=== PATIENT | female | born 1995 ===

== ENCOUNTER 2017-04-30 10:30 | Emergency (ER) | payer MEDICAID ==
[2017-04-30 11:08] VITALS: BMI 22.1
--- NOTE | 2017-04-30 11:55 | C.PDOC ---
History Of Present Illness 21 year old patient, with no significant past medical history, presents to the ED complaining of constant suprapubic and epigastric pain since this morning. Patient states the pain is worse with eating. She notes she took a test which was positive a few days ago. She reports she normally has irregular periods and her last period was in December 2016. She took several tests since December, but they have been negative until recently. Patient also complains of intermittent nausea, and notes she vomited yesterday. Patient denies any vaginal bleeding, fever, chills, or any other complaints at this time. Time Seen by Provider: 04/30/17 11:45 Chief Complaint (Nursing): Abdominal Pain History Per: Patient History/Exam Limitations: no limitations Onset/Duration Of Symptoms: Hrs (this morning) Current Symptoms Are (Timing): Still Present Context: Other Severity: Mild Pain Scale Rating Of: 3 Location Of Pain/Discomfort: Epigastric, Suprapubic Radiation Of Pain To:: None Quality Of Discomfort: "Pain" Associated Symptoms: Nausea Exacerbating Factors: Food Alleviating Factors: None Last Bowel Movement: Today Recent travel outside of the [place]: No Abnormal Vaginal Bleeding: No Last Menstral Period: December 2016 Past Medical History Reviewed: Historical Data, Nursing Documentation, Vital Signs Vital Signs: Last Vital Signs Temp 98.0 F 04/30/17 14:01 Pulse 68 04/30/17 14:01 Resp 19 04/30/17 14:01 BP 125/76 04/30/17 14:01 Pulse Ox 99 04/30/17 14:01 Family History: States: Unknown Family Hx - Social History Hx Alcohol Use: No Hx Substance Use: No - Immunization History Hx Tetanus Toxoid Vaccination: No Hx Influenza Vaccination: No Hx Pneumococcal Vaccination: No Review Of Systems Except As Marked, All Systems Reviewed And Found Negative. Constitutional: Negative for: Fever, Chills Gastrointestinal: Positive for: Nausea, Abdominal Pain (epigastric and suprapubic). Negative for: Vomiting Genitourinary: Negative for: Vaginal Bleeding Physical Exam - Physical Exam Appears: Non-toxic, No Acute Distress Skin: Warm, Dry Head: Atraumatic, Normacephalic Oral Mucosa: Moist Neck: Normal ROM, Supple Chest: Symmetrical Cardiovascular: Rhythm Regular Respiratory: Normal Breath Sounds, No Rales, No Rhonchi, No Wheezing Gastrointestinal/Abdominal: Soft, Tenderness (epigastric; mild suprapubic), No Guarding, No Rebound Back: Normal Inspection, No CVA Tenderness Extremity: Normal ROM Neurological/Psych: Oriented x3, Normal Speech, Normal Cognition Gait: Steady ED Course And Treatment O2 Sat by Pulse Oximetry: 100 (room air) Pulse Ox Interpretation: Normal Medical Decision Making Medical Decision Making: Plan: * Maalox * Labs * First trimester US Progress: First trimester Ultrasound: read by radiologist (Merlyn Durham MD) Indication: Abdominal pain, rule out ectopic Technique: A real-time transabdominal pelvic ultrasound was performed. Comparison: None available Findings: The uterus measures approximately 11.6 x 6.2 x 6.9 cm. Anteverted. Cervix length measures approximately 3.6 cm. Intrauterine gestational sac measures approximately 3.6 cm compatible with gestational age 8 weeks 6 days. 3 mm yolk sac. Soldier-rump length measures approximately 1.3 cm compatible with gestational age 7 weeks 4 days. heart motion measures approximately 148.2 beats per minute. The right ovary measures 3.6 x 2.4 x 3.5 cm and appears unremarkable. The left ovary measures 3.3 x 1.8 x 2.9 cm and appears unremarkable. Blood flow is noted to both ovaries. No significant pelvic free fluid identified. Impression: Live single intrauterine compatible with gestational age 8 weeks 6 days by gestational sac calculation and 7 weeks 4 days by crown-rump length calculation. heart motion measures approximately 148.2 beats per minute. Advise an anomaly screen at 16-18 weeks gestational age. Disposition - Disposition Disposition: HOME/ ROUTINE Disposition Time: 14:18 Condition: STABLE - Clinical Impression Clinical Impression: Abdominal pain, - Scribe Statement The provider has reviewed the documentation as recorded by the Scribe Sharona Mejia Provider Attestation: All medical record entries made by the Scribe were at my direction and personally dictated by me. I have reviewed the chart and agree that the record accurately reflects my personal performance of the history, physical exam, medical decision making, and the department course for this patient. I have also personally directed, reviewed, and agree with the discharge instructions and disposition.
[2017-04-30] MEDS ORDERED: Aluminum Hydroxide/Magnesium Hydroxide Susp (30 mL) PO STA (11:56)
[2017-04-30 12:00] LABS: RBC URINE 9 /hpf (0-3); URINE BACTERIA RARE (<OCC); URINE BILIRUBIN NEGATIVE (NEGATIVE); URINE BLOOD NEGATIVE (NEGATIVE); URINE COLOR Yellow (YELLOW); URINE GLUCOSE (UA) NORMAL (Normal); URINE KETONE NEGATIVE (NEGATIVE); URINE LEUKOCYTE ESTERASE TRACE Leu/uL (Negative); URINE PROTEIN NEGATIVE (NEGATIVE); URINE UROBILINOGEN NORMAL mg/dL (0.2-1.0); WBC URINE 2 /hpf (0-5)
[2017-04-30] MEDS ORDERED: Aluminum Hydroxide/Magnesium Hydroxide Susp (30 mL) ONE (12:31)
[2017-04-30 14:02] VITALS: BP 125/76; PULSE 68; RESP 19; TEMP 98
--- NOTE | 2017-04-30 14:09 | US ---
Indication: Abdominal pain, rule out ectopic Technique: A real-time transabdominal pelvic ultrasound was performed. Comparison: None available Findings: The uterus measures approximately 11.6 x 6.2 x 6.9 cm. Anteverted. Cervix length measures approximately 3.6 cm. Intrauterine gestational sac measures approximately 3.6 cm compatible with gestational age 8 weeks 6 days. 3 mm yolk sac. Haliimaile-rump length measures approximately 1.3 cm compatible with gestational age 7 weeks 4 days. heart motion measures approximately 148.2 beats per minute. The right ovary measures 3.6 x 2.4 x 3.5 cm and appears unremarkable. The left ovary measures 3.3 x 1.8 x 2.9 cm and appears unremarkable. Blood flow is noted to both ovaries. No significant pelvic free fluid identified. Impression: Live single intrauterine compatible with gestational age 8 weeks 6 days by gestational sac calculation and 7 weeks 4 days by crown-rump length calculation. heart motion measures approximately 148.2 beats per minute. Advise an anomaly screen at 16-18 weeks gestational age.
[2017-04-30 14:19] VITALS: O2SAT 100
== END 2017-04-30 14:32 | disposition home or self-care (01) ==
LOC: C.ER 10:30
DX: O26.891 Other specified pregnancy related conditions, first trimester (principal); R10.13 Epigastric pain; Z3A.08 8 weeks gestation of pregnancy

== ENCOUNTER 2017-07-01 12:52 | Emergency (ER) | payer MEDICAID ==
[2017-07-01 12:52] VITALS: BMI 22.1
[2017-07-01 13:53] LABS: RBC URINE 4 /hpf (0-3); URINE BILIRUBIN NEGATIVE (NEGATIVE); URINE BLOOD NEGATIVE (NEGATIVE); URINE COLOR Yellow (YELLOW); URINE GLUCOSE (UA) NORMAL (Normal); URINE KETONE TRACE mg/dL (NEGATIVE); URINE LEUKOCYTE ESTERASE TRACE Leu/uL (Negative); URINE PROTEIN 1+ mg/dL (NEGATIVE); URINE UROBILINOGEN NORMAL mg/dL (0.2-1.0); WBC URINE 6 /hpf (0-5)
--- NOTE | 2017-07-01 14:49 | C.PDOC ---
History Of Present Illness 21 y/o female w/o significant PMHx presents to the emergency department for evaluation of gradual onset of diffuse lower abdominal cramping pain associated with one episode of vomiting and intermittent dizziness since this morning. Pt is 17 weeks , LMP was in . Pt admits, (+) care, no complication as of today. Pt denies fever, chills, recent illness, headache, visual changes, focal deficits, CP, SOB, dyspnea, palpitation, wheezing, hematemesis, back pain, UTi sx, hematuria, vaginal discharge or bleeding, denies B/L calf pain. Ambulate to Ed for evaluation, not in any apparent distress. Time Seen by Provider: 07/01/17 14:25 Chief Complaint (Nursing): Abdominal Pain History Per: Patient History/Exam Limitations: no limitations Onset/Duration Of Symptoms: Hrs Current Symptoms Are (Timing): Still Present Severity: Mild Location Of Pain/Discomfort: RLQ, LLQ Radiation Of Pain To:: None Quality Of Discomfort: "Pain" Associated Symptoms: Vomiting. denies: Fever, Chills, Urinary Symptoms Exacerbating Factors: None Alleviating Factors: None Recent travel outside of the [place]: No Abnormal Vaginal Bleeding: No Past Medical History Reviewed: Historical Data, Nursing Documentation, Vital Signs Vital Signs: Last Vital Signs Temp 98.2 F 07/01/17 18:03 Pulse 74 07/01/17 18:03 Resp 16 07/01/17 18:03 BP 114/66 07/01/17 18:03 Pulse Ox 98 07/01/17 18:03 Family History: States: Unknown Family Hx - Social History Hx Alcohol Use: No Hx Substance Use: No - Immunization History Hx Tetanus Toxoid Vaccination: No Hx Influenza Vaccination: No Hx Pneumococcal Vaccination: No Review Of Systems Except As Marked, All Systems Reviewed And Found Negative. Constitutional: Negative for: Fever, Chills Cardiovascular: Negative for: Chest Pain Respiratory: Negative for: Shortness of Breath Gastrointestinal: Positive for: Vomiting, Abdominal Pain. Negative for: Diarrhea Genitourinary: Negative for: Dysuria, Hematuria, Vaginal Bleeding Neurological: Positive for: Dizziness. Negative for: Headache Physical Exam - Physical Exam Appears: Non-toxic, No Acute Distress Skin: Warm, Dry, No Rash Head: Normacephalic Eye(s): bilateral: PERRL Nose: No Flaring, No Discharge Oral Mucosa: Moist Throat: No Erythema, No Drooling Neck: Supple Chest: Symmetrical Cardiovascular: Rhythm Regular, No Murmur Respiratory: No Decreased Breath Sounds, No Accessory Muscle Use, No Rales, No Rhonchi, No Stridor, No Wheezing Gastrointestinal/Abdominal: Soft, Tenderness (/inquinal tenderness, mild), No Distention, No Guarding, No Rebound Back: No CVA Tenderness Extremity: Normal ROM, No Tenderness, No Pedal Edema, No Deformity Extremity: Bilateral: Atraumatic Neurological/Psych: Oriented x3, Normal Speech, Normal Cognition ED Course And Treatment - Laboratory Results Result Diagrams: 07/01/17 15:00 07/01/17 15:00 Lab Interpretation: Normal O2 Sat by Pulse Oximetry: 100 (room air) Pulse Ox Interpretation: Normal - CT Scan/US US Other Rad Studies (CT/US): Radiology Report Reviewed CT/US Interpretation: Accession No. : [id number]. Patient Name / ID : BALOD MCQUEEN / [id number]. Exam Date : 07/01/2017 15:50:46 ( Approved ). Study Comment : Sex / Age : F / 21Y. Creator : Merlyn Samaniego MD. Dictator : Child Care Development Specialist : Assistant Teaching Professor : Merlyn Samaniego MD. Approver2 : Report Date : 07/01/2017 16:50:58. My Comment : . Indication: Abdominal pain. Comparison: 1st trimester ultrasound performed 04/30. Technique: Real-time ultrasound was performed through the pelvis. Findings: There is a single living fetus in cephalic presentation. Posterior placenta. The placenta is not previa. The study was performed for the emergent evaluation of abdominal pain, and the whole anatomic survey of the fetus was not performed. This should be performed on an outpatient elective basis as clinically warranted. There are no adnexal masses or cysts evident. Cervix length measures approximately 3.5 cm. Measurements and calculations: Fetus has a composite sonographic age of 17 weeks 2 days. This calculation is based on the biparietal diameter, head circumference, abdominal circumference, and femur length. Estimated heart rate 154.4 beats per min. Impression: Single living fetus with a composite sonographic age of 17 weeks 2 days. Estimated heart rate 154.4 beats per min. Abd US Other Rad Studies (CT/US): Radiology Report Reviewed CT/US Interpretation: Accession No. : [id number]. Patient Name / ID : BALDO MCQUEEN / [id number]. Exam Date : 07/01/2017 16:13:26 ( Approved ). Study Comment : Sex / Age : F / 21Y. Creator : Merlyn Samaniego MD. Dictator : Child Care Development Specialist : Assistant Teaching Professor : Merlyn Samaniego MD. Approver2 : Report Date : 07/01/2017 16:52:03. My Comment : . Indication: RLQ pain r/o appendicitis. Limited abdominal ultrasound. Findings : Limited submitted views obtained in the region of interest (right lower quadrant) appear grossly unremarkable. The appendix was not identified. No significant free fluid is seen. Findings: The appendix is not identified. Please note that appendicitis cannot be excluded on the basis of this study alone. Progress Note: On re-eavluation, pt is afebrile, hemodynamicaly stable. Non- toxic. Tolerate po well in ED. ENT: no acute findings. Lungs: CTA B/L, BS equal B/L. Abd: benign, (-) guarding, (-) rebound. back: (-) CVA tenderness. Neuorlogicaly intact. B/L legs: (-) calf tenderness B/L, no edema. Diagnostics review and appears normal. beta quat c/w 16 wks GA. Blood type A positice Ab (-). US results review, zoe IUP 17w2D, no acute abnormalitis. results review, discussed with pt. Results review and discussed with pt. Pt was advise on sign of appendicitis-OBS and return to ED at any time if any worsening or new changes. ref. to F/u with OB in 1-2 days for re-evaluation. return to ED if any worsening or new changes. Pt understand, stable for discharge now. Disposition Counseled Patient/Family Regarding: Studies Performed, Diagnosis, Need For Followup, Rx Given - Disposition [facility] Disposition: HOME/ ROUTINE Disposition Time: 17:01 Condition: STABLE Additional Instructions: Encourage fluids Cranberry supplement Take medication as prescribed Follow up with OB in 1-2 days for re-evaluation. Return to ED if any worsening or new changes. Prescriptions: Nitrofurantoin Macrocrystals [Macrobid] 1 cap PO BID #14 cap Instructions: Urinary Tract Infection in (ED) Forms: [employer] (Romansh) Print Language: ANDORRAN - Clinical Impression Clinical Impression: UTI (urinary tract infection), - PA / PIE BAKER / Resident Statement MD/DO has reviewed & agrees with the documentation as recorded. - Scribe Statement The provider has reviewed the documentation as recorded by the Maureen Menezes All medical record entries made by the Maureen were at my direction and personally dictated by me. I have reviewed the chart and agree that the record accurately reflects my personal performance of the history, physical exam, medical decision making, and the department course for this patient. I have also personally directed, reviewed, and agree with the discharge instructions and disposition.
[2017-07-01 15:05] LABS: BASO % 0.5 % (0.0-2.0); EOS % 0.5 % (0.0-4.0); HEMATOCRIT 35.6 % (34.0-47.0); LYMPH # 1.5 K/uL (1.0-4.3); LYMPH % 15.5 % (20.0-40.0); MEAN CELL VOLUME 83.9 fL (81.0-99.0); MEAN CORPUSCULAR HEMOGLOBIN 27.4 pg (27.0-31.0); MEAN CORPUSCULAR HGB CONC 32.7 g/dL (33.0-37.0); MEAN PLATELET VOLUME 8.8 fL (7.2-11.7); MONO # 0.7 K/uL (0.0-0.8); MONO % 7.5 % (0.0-10.0); RED CELL DISTRIBUTION WIDTH 14.2 % (11.5-14.5); WHITE BLOOD COUNT 9.6 K/uL (4.8-10.8)
[2017-07-01 15:14] LABS: CHLORIDE 101 mmol/L (98-107); POTASSIUM 3.5 mmol/L (3.6-5.2); SODIUM 136 mmol/L (132-148)
[2017-07-01 15:17] LABS: BLOOD UREA NITROGEN 6 mg/dL (7-17); CARBON DIOXIDE 23 mmol/L (22-30); GFR AFRICAN-AMERICAN > 60
[2017-07-01 15:18] LABS: GLUCOSE,RANDOM 69 mg/dL (65-105)
--- NOTE | 2017-07-01 16:52 | US ---
Indication: Abdominal pain Comparison: 1st trimester ultrasound performed 04/30/17 Technique: Real-time ultrasound was performed through the pelvis. Findings: There is a single living fetus in cephalic presentation. Posterior placenta. The placenta is not previa. The study was performed for the emergent evaluation of abdominal pain, and the whole anatomic survey of the fetus was not performed. This should be performed on an outpatient elective basis as clinically warranted. There are no adnexal masses or cysts evident. Cervix length measures approximately 3.5 cm. Measurements and calculations: Fetus has a composite sonographic age of 17 weeks 2 days. This calculation is based on the biparietal diameter, head circumference, abdominal circumference, and femur length. Estimated heart rate 154.4 beats per min. Impression: Single living fetus with a composite sonographic age of 17 weeks 2 days. Estimated heart rate 154.4 beats per min.
--- NOTE | 2017-07-01 16:53 | US ---
Indication: RLQ pain r/o appendicitis Limited abdominal ultrasound Findings: Limited submitted views obtained in the region of interest (right lower quadrant) appear grossly unremarkable. The appendix was not identified. No significant free fluid is seen. Findings: The appendix is not identified. Please note that appendicitis cannot be excluded on the basis of this study alone.
[2017-07-01 18:04] VITALS: BP 114/66; PULSE 74; RESP 16; TEMP 98.2
[2017-07-02 16:54] VITALS: O2SAT 100
== END 2017-07-01 18:00 | disposition home or self-care (01) ==
LOC: C.ER 12:52
DX: O23.41 Unspecified infection of urinary tract in pregnancy, first trimester (principal); Z3A.17 17 weeks gestation of pregnancy

== ENCOUNTER 2017-12-04 12:07 | Inpatient (IN) | payer MEDICAID ==
[2017-12-04 12:36] VITALS: BMI 24.1
[2017-12-04] MEDS ORDERED: Penicillin G 5 Million Unit Vial IVPB ONE (12:36)
[2017-12-04] MEDS ORDERED: Lactated Ringer's 1,000 ML IV SCH ×2 (12:45)
--- NOTE | 2017-12-04 12:52 | OBHP ---
Datetime: 12/04/2017 12:41 IP Adm Impression: Term, intrauterine ; Active labor; Intact Membranes IP Admit Plan: Admit to unit; Initiate labor protocol Admit Comment, IP Provider: 22 y.o. , LMP unsure, JR 12/13/17, EGA 38w 6d by sono 04/30/17 at 7w 4d, c/o Ctx onset 0900 hours, pain scale 10/10. (+) AFM; denies LOF, VB. care: [facility]-; reports noted for anemia P Ob: 06/25/2010, , fmale 6 1/2 lbs; Everardo Moise; no complications P [employer]: 11 x monthly x 7. Denies prior STIs or abnormal Pap PMH: denies PSH: denies NKDA Meds: PNV, iron - each, QD Soc Hx: denies tobacco illicit drug or EtOH use. With FOB x 2 yrs; lives with him and daughter. Un employed Fam Hx: Mother alive 50y.o. Father alive 60 y.o. - both, no med issues. No known fam h/o cancer P.E.: as above. WD in pain with contractions. Awake, alert, oriented to time, person and place. C ooperative. FOB present Assessment: 22 y.o. P1, 38w 6d, near end of Stage 1 of labor. GBS (+). Category 1 tracing. Clin ically stable. Plan: 1) Admit 2) NPO 3) IVFs 4) Continuous EFM 5) Penicillin 6) Anticipate vaginal delivery Pelvic Type - PN: Adequate Extremities - PN: Normal Abdomen - PN: Normal Back - PN: Normal Breast - PN: Not Done Lungs - PN: Normal Heart - PN: Normal Thyroid - PN: Not Done Neurologic - PN: Normal HEENT - PN: Normal General - PN: Normal Weight - Estimated: 3178 Presentation-Admit: Vertex FHR - Baseline A Provider: 140 Membranes, Provider: Intact Contraction Comments Provider: 2-3 Comments, ACOG Physical Exam: Abdomen: Gravid. Firm with contractions. Fundal height 38cm All other systems reviewed and are negative Gestation - Est Wks by US: 38w 6d IP Hx Assessment: The History has been Reviewed and is Current EGA AdmitDate IP: 38.5 Vital Signs Provider: Reviewed; Within Normal Limits IP Indication for Induction: Not Applicable IP Chief Complaint: Uterine contractions NICHD Variability Prov Fetus A: Moderate 6-25bpm NICHD Accel Fetus A IP Provider: [id number] FHR Category Provider Fetus A: Category I NICHD Decel Fetus A IP Provider: None Dilatation, Provider: 8 Effacement, Provider: 90 Station, Provider: -3 Genitourinary Exam: Normal DTRs - PN: Not Done
[2017-12-04 12:58] LABS: BASO # 0.1 K/uL (0.0-0.2); BASO % 0.7 % (0.0-2.0); EOS % 0.3 % (0.0-4.0); HEMOGLOBIN 11.2 g/dL (11.0-16.0); LYMPH # 2.6 K/uL (1.0-4.3); MEAN CORPUSCULAR HEMOGLOBIN 24.7 pg (27.0-31.0); MEAN CORPUSCULAR HGB CONC 31.3 g/dL (33.0-37.0); MONO # 0.9 K/uL (0.0-0.8); MONO % 8.1 % (0.0-10.0); NEUT # 7.8 K/uL (1.8-7.0); NEUT % 67.9 % (50.0-75.0); NRBC % 0.1 % (0.0-2.0); RBC 4.51 Mil/uL (3.80-5.20); RED CELL DISTRIBUTION WIDTH 16.2 % (11.5-14.5); WHITE BLOOD COUNT 11.5 K/uL (4.8-10.8)
[2017-12-04 13:01] LABS: MEAN CELL VOLUME 79.1 fL (81.0-99.0)
[2017-12-04 13:12] LABS: ALBUMIN 4.1 g/dL (3.5-5.0); ALT/SGPT 23 U/L (9-52); AST/SGOT 29 U/L (14-36); BLOOD UREA NITROGEN 9 mg/dL (7-17); GFR AFRICAN-AMERICAN > 60; GFR NON-AFRICAN AMERICAN > 60
[2017-12-04] MEDS ORDERED: Oxytocin 10 Units/ml Inj ONE (13:52)
[2017-12-04] MEDS ORDERED: Lidocaine 2% Inj (20ml) ONE (13:53)
[2017-12-04] MEDS ORDERED: Oxycodone/Acetaminophen 5/325 mg Tab PO PRN (15:03)
[2017-12-04 16:56] LABS: SQUAMOUS EPITHIAL 1 /hpf (0-5); URINE BILIRUBIN NEGATIVE (NEGATIVE); URINE BLOOD 1+ (NEGATIVE); URINE CLARITY Hazy (Clear); URINE COLOR Yellow (YELLOW); URINE GLUCOSE (UA) NORMAL (Normal); URINE LEUKOCYTE ESTERASE NEG Leu/uL (Negative); URINE NITRATE NEGATIVE (NEGATIVE); URINE PROTEIN NEGATIVE (NEGATIVE); URINE UROBILINOGEN NORMAL mg/dL (0.2-1.0)
[2017-12-04] MEDS ORDERED: WATER IV SCH (17:00)
[2017-12-04] MEDS ORDERED: DEXTROSE IV SCH (17:00)
[2017-12-04] MEDS ORDERED: PENICILLIN POTASSIUM MU IV SCH (17:00)
[2017-12-04] MEDS ORDERED: Benzocaine/Menthol 20%-0.5% Topical Spray (60 ml) TOP SCH (18:00)
[2017-12-05 07:31] LABS: HEMOGLOBIN 9.5 g/dL (11.0-16.0); MEAN CORPUSCULAR HEMOGLOBIN 24.7 pg (27.0-31.0); MEAN CORPUSCULAR HGB CONC 31.6 g/dL (33.0-37.0); MEAN PLATELET VOLUME 8.7 fL (7.2-11.7); RBC 3.84 Mil/uL (3.80-5.20); RED CELL DISTRIBUTION WIDTH 15.8 % (11.5-14.5); WHITE BLOOD COUNT 15.7 K/uL (4.8-10.8)
[2017-12-05] MEDS: Multiple Vitamins Tab PO SCH (10:20)
--- NOTE | 2017-12-05 10:42 | OBPPN ---
Datetime: 12/05/2017 10:37 PP Pain Prov: Within normal limits PP Nausea Prov: Denies PP Flatus Prov: Yes PP BM Prov: No PP Breasts Prov: Normal PP Heart Prov: Normal PP Lungs Prov: Normal PP Abdomen/Uterus Prov: Normal PP Lochia Prov: Normal PP CVA Tenderness Prov: Normal PP Extremities Prov: Normal PP Progress Prov: Normal PP Comments Phys Exam Prov: hgb 11.2 to 9.5 PP Impression Prov: Normal progression PP Plan Prov: Continue present management; consult PP Progress Note Prov: s: no c/o. tolerating reg diet. + i: s/p doing well hgb 9.5 p: d/c home on rx for Fe. current care. Vital Signs Provider PP: Within Normal Limits
[2017-12-06 08:56] VITALS: BP 101/62; PULSE 66; RESP 18; O2SAT 99
[2017-12-06] MEDS: Multiple Vitamins Tab PO SCH (10:09)
[2017-12-06] MEDS ORDERED: Influenza Virus Vaccine 45 mcg/0.5 ml Syr (36 months - 7 yrs) IM ONE (11:41)
[2017-12-06] MEDS ORDERED: Influenza Vaccine 60 mcg/0.5 mL SYR (4YR UP) IM ONE (13:00)
--- NOTE | 2017-12-06 14:18 | OBPPN ---
Datetime: 12/06/2017 12:48 PP Pain Prov: Within normal limits PP Nausea Prov: Denies PP Flatus Prov: Yes PP Heart Prov: Normal PP Lungs Prov: Normal PP Abdomen/Uterus Prov: Normal PP Lochia Prov: Normal PP CVA Tenderness Prov: Normal PP Extremities Prov: Normal PP C/S Incision Prov: Not Applicable PP Progress Prov: Normal PP Impression Prov: Normal progression PP Plan Prov: Discharge PP Progress Note Prov: S-patient reports that her pain si well controlled.she is tolerating reg diet .she is ambulating and voiding without difficulty O-VSS Afebrile FUndus firm and below umbilicus Abdomen soft and nontender extremities no calf tenderness A/P Patient s/p vaginal delivery PPD 2 doing well -discharge today -follow up in clinic in 6 weks precautions given Vital Signs Provider PP: Reviewed; Within Normal Limits
--- NOTE | 2017-12-06 14:21 | OBDCSUM ---
Datetime: 12/06/2017 09:10 Discharged to, Provider: Home Follow up at, Provider: [facility] Disch Instr Activity: Normal activity; May Shower Disch Instr Diet: Regular Discharge Diet restrict Prov: none Discharge Instructions, Provider: Routine instructions given Discharge Diagnosis, Provider: Term Delivered Discharge Time: 12/06/2017 10:00 Follow up in weeks, Provider: 6 weeks Disch Referrals: None Disch Activity Restrictions: No exercising; No lifting; No sexual activity; Nothing in vagina - Inte rcourse, tampons, douche Discharge Comment, Provider: go to clinic or er if you have severe pain, heavy bleeidng, fever, pain or redness in calf msucels or any other problems Discharge Diagnosis Prov Other: s/p vaginal delivery
[2017-12-06 20:14] VITALS: TEMP 97
== END 2017-12-06 16:00 | disposition home or self-care (01) | DRG 373 ==
LOC: C.EROB 12:07 → C.4D 12:36 → C.4M 15:41
PROVIDERS: ADMIT Obstetrics & Gynecology; ATTEND Obstetrics & Gynecology
PROC: 10E0XZZ Delivery of Products of Conception, External Approach (ICD-10-PCS; principal; 2017-12-04)
DX: O99.824 Streptococcus B carrier state complicating childbirth (principal); O99.02 Anemia complicating childbirth; Z37.0 Single live birth; Z3A.38 38 weeks gestation of pregnancy